=== PATIENT | male | born 1975 | race Caucasian/White ===

== ENCOUNTER 2017-10-21 15:17 | Inpatient (IN) | payer OTHER ==
[2017-10-21] MEDS: LORazepam 2 MG TAB PO ×2 (16:02→17:00)
[2017-10-21 16:05] LABS: HEMATOCRIT 46.1 % (42.0-52.0); HEMOGLOBIN 15.8 g/dl (13.5-17.5); MEAN CORPUSCULAR HEMOGLOBIN 30.5 pg (27.0-33.0); MEAN CORPUSCULAR HGB CONC 34.3 g/dl (32.0-36.5); PLATELET COUNT, AUTOMATED 298 10^3/uL (150-450); RED BLOOD COUNT 5.18 10^6/uL (4.30-6.10); RED CELL DISTRIBUTION WIDTH 12.2 % (11.5-14.5); WHITE BLOOD COUNT 10.5 10^3/uL (4.0-10.0)
[2017-10-21 16:39] LABS: ALBUMIN 4.2 GM/DL (3.2-5.2); ALBUMIN/GLOBULIN RATIO 1.14 (1.00-1.93); ALKALINE PHOSPHATASE 96 U/L (45-117); ALT/SGPT 37 U/L (12-78); ANION GAP 4 MEQ/L (8-16); AST/SGOT 14 U/L (7-37); BILIRUBIN,DIRECT 0.1 MG/DL (0.0-0.2); BILIRUBIN,TOTAL 0.7 MG/DL (0.2-1.0); BLOOD UREA NITROGEN 18 MG/DL (7-18); CALCIUM LEVEL 9.9 MG/DL (8.5-10.1); CARBON DIOXIDE LEVEL 30 MEQ/L (21-32); CHLORIDE LEVEL 105 MEQ/L (98-107); CREATININE FOR GFR 1.15 MG/DL (0.70-1.30); ETHYL ALCOHOL (ETHANOL) 0.004 % (0.000-0.010); GLOMERULAR FILTRATION RATE > 60.0 (>60); GLUCOSE, FASTING 90 MG/DL (70-100); POTASSIUM SERUM 4.2 MEQ/L (3.5-5.1); SALICYLATE LEVEL < 1.7 MG/DL (5.0-30.0); SODIUM LEVEL 139 MEQ/L (136-145); TOTAL PROTEIN 7.9 GM/DL (6.4-8.2)
[2017-10-21 16:40] LABS: AMPHETAMINES LEVEL URINE NEGATIVE (NEGATIVE); BARBITURATES URINE NEGATIVE (NEGATIVE); BENZODIAZEPINES URINE NEGATIVE (NEGATIVE); CANNABINOIDS URINE NEGATIVE (NEGATIVE); COCAINE METABOLITE URINE NEGATIVE (NEGATIVE); METHADONE URINE NEGATIVE (NEGATIVE); OPIATES URINE NEGATIVE (NEGATIVE); PHENCYCLIDINE URINE NEGATIVE (NEGATIVE)
[2017-10-21 16:43] LABS: ACETAMINOPHEN LEVEL < 2.0 UG/ML (10.0-30.0)
[2017-10-21] MEDS ORDERED: MOM 30ML SUSPENSION UDC PO (17:00)
[2017-10-21] MEDS ORDERED: MAALOX 30 ML SUSP *UDC PO (17:00)
[2017-10-21] MEDS: traZODone 50 MG TAB PO (19:45)
[2017-10-21] MEDS: ACETAMINOPHEN TAB 650MG DOSE (2X325MG) PO (19:45)
[2017-10-21] MEDS: METHADONE 10 MG TAB (S0109) PO (19:45)
[2017-10-22] MEDS: NICOTINE 21MG/24HR 1 EA TRANSDERMAL TD (09:00)
[2017-10-22] MEDS: METHADONE 10 MG TAB (S0109) PO (09:19)
[2017-10-22] MEDS: VENLAFAXINE **XR** 37.5 MG CAPSULE PO (13:26)
[2017-10-22] MEDS: cloNIDine 0.1 MG TAB PO ×2 (13:27→17:17)
[2017-10-22] MEDS: ACETAMINOPHEN TAB 650MG DOSE (2X325MG) PO (20:45)
[2017-10-22] MEDS: traZODone 50 MG TAB PO (20:45)
[2017-10-23] MEDS: VENLAFAXINE **XR** 37.5 MG CAPSULE PO (08:07)
[2017-10-23] MEDS: METHADONE 10 MG TAB (S0109) PO (08:07)
[2017-10-23] MEDS: NICOTINE 21MG/24HR 1 EA TRANSDERMAL TD (08:08)
[2017-10-23 08:49] LABS: HEMATOCRIT 45.4 % (42.0-52.0); HEMOGLOBIN 15.5 g/dl (13.5-17.5); MEAN CORPUSCULAR HEMOGLOBIN 30.6 pg (27.0-33.0); MEAN CORPUSCULAR HGB CONC 34.1 g/dl (32.0-36.5); MEAN CORPUSCULAR VOLUME 89.5 fl (80.0-96.0); PLATELET COUNT, AUTOMATED 262 10^3/uL (150-450); RED BLOOD COUNT 5.07 10^6/uL (4.30-6.10); WHITE BLOOD COUNT 7.8 10^3/uL (4.0-10.0)
[2017-10-23] MEDS: LORazepam 0.5 MG TAB PO (15:01)
[2017-10-23] MEDS: traZODone 50 MG TAB PO (20:33)
[2017-10-23] MEDS: cloNIDine 0.1 MG TAB PO (20:34)
[2017-10-23] MEDS: ACETAMINOPHEN TAB 650MG DOSE (2X325MG) PO (20:35)
[2017-10-24] MEDS: NICOTINE 21MG/24HR 1 EA TRANSDERMAL TD (08:10)
[2017-10-24] MEDS: cloNIDine 0.1 MG TAB PO ×2 (08:13→20:51)
[2017-10-24] MEDS: VENLAFAXINE **XR** 75MG CAPSULE PO (08:14)
[2017-10-24] MEDS: METHADONE 10 MG TAB (S0109) PO (08:14)
[2017-10-24 09:38] LABS: HEPATITIS B SURFACE ANTIGEN NEGATIVE (NEGATIVE)
[2017-10-24 09:53] LABS: HEPATITIS C VIRUS ABY INDEX 0.1 INDEX (<0.8)
[2017-10-24 09:53] LABS: HEPATITIS B CORE ANTIBODY IGM NEGATIVE (NEGATIVE)
[2017-10-24 09:54] LABS: HIV 1&2 SCREEN CENTAUR NEGATIVE (NEGATIVE)
[2017-10-24 09:55] LABS: HEPATITIS A ANTIBODY IGM NEGATIVE (NEGATIVE)
[2017-10-24] MEDS ORDERED: QUEtiapine FUMARATE 25 MG TAB PO (11:15)
[2017-10-24] MEDS: QUEtiapine FUMARATE 50 MG TAB PO (11:23)
[2017-10-24] MEDS: LORazepam 0.5 MG TAB PO (19:04)
[2017-10-24] MEDS: QUEtiapine FUMARATE 100 MG TAB PO (20:51)
[2017-10-25] MEDS: VENLAFAXINE **XR** 75MG CAPSULE PO (08:42)
[2017-10-25] MEDS: METHADONE 10 MG TAB (S0109) PO (08:43)
[2017-10-25] MEDS: NICOTINE 21MG/24HR 1 EA TRANSDERMAL TD (08:43)
[2017-10-25] MEDS: ACETAMINOPHEN TAB 650MG DOSE (2X325MG) PO (15:42)
[2017-10-25] MEDS: QUEtiapine FUMARATE 25 MG TAB PO (18:13)
[2017-10-25] MEDS: QUEtiapine FUMARATE 100 MG TAB PO (20:36)
[2017-10-25] MEDS: LORazepam 0.5 MG TAB PO (20:36)
[2017-10-25] MEDS: cloNIDine 0.1 MG TAB PO (20:37)
[2017-10-26] MEDS: VENLAFAXINE **XR** 75MG CAPSULE PO (08:29)
[2017-10-26] MEDS: METHADONE 10 MG TAB (S0109) PO (08:29)
[2017-10-26] MEDS: NICOTINE 21MG/24HR 1 EA TRANSDERMAL TD (08:29)
[2017-10-26] MEDS: QUEtiapine FUMARATE 25 MG TAB PO (12:29)
[2017-10-26] MEDS: LORazepam 0.5 MG TAB PO (19:34)
[2017-10-26] MEDS: QUEtiapine FUMARATE 100 MG TAB PO (20:59)
[2017-10-26] MEDS: cloNIDine 0.1 MG TAB PO (21:00)
[2017-10-27] MEDS: NICOTINE 21MG/24HR 1 EA TRANSDERMAL TD (08:13)
[2017-10-27] MEDS: METHADONE 10 MG TAB (S0109) PO (08:17)
[2017-10-27] MEDS: VENLAFAXINE **XR** 75MG CAPSULE PO (08:17)
[2017-10-27] MEDS: QUEtiapine FUMARATE 25 MG TAB PO ×2 (12:39→17:28)
[2017-10-27] MEDS: QUEtiapine FUMARATE 100 MG TAB PO (21:43)
[2017-10-28] MEDS: METHADONE 5 MG TAB (S0109) PO (08:06)
[2017-10-28] MEDS: VENLAFAXINE **XR** 75MG CAPSULE PO (08:06)
[2017-10-28] MEDS: QUEtiapine FUMARATE 25 MG TAB PO ×2 (08:06→11:58)
[2017-10-28] MEDS: NICOTINE 21MG/24HR 1 EA TRANSDERMAL TD (08:07)
[2017-10-28] MEDS: cloNIDine 0.2 MG TAB PO (13:48)
[2017-10-28] MEDS: QUEtiapine FUMARATE 100 MG TAB PO (20:48)
[2017-10-29] MEDS: NICOTINE 21MG/24HR 1 EA TRANSDERMAL TD (08:37)
[2017-10-29] MEDS: METHADONE 5 MG TAB (S0109) PO (08:38)
[2017-10-29] MEDS: VENLAFAXINE **XR** 75MG CAPSULE PO (08:39)
[2017-10-29] MEDS: QUEtiapine FUMARATE 25 MG TAB PO ×2 (08:39→11:57)
== END 2017-10-29 12:00 | disposition home or self-care (01) | DRG 751 ==
LOC: M ED 15:17 → M ED INP 16:47 → M PSY 18:15
DX: F33.9 Major depressive disorder, recurrent, unspecified (principal); R45.851 Suicidal ideations; F14.90 Cocaine use, unspecified, uncomplicated; F11.90 Opioid use, unspecified, uncomplicated; F43.10 Post-traumatic stress disorder, unspecified; F17.200 Nicotine dependence, unspecified, uncomplicated; D72.829 Elevated white blood cell count, unspecified

== ENCOUNTER 2017-11-07 23:45 | Inpatient (IN) | payer OTHER ==
[2017-11-08 02:32] LABS: HEMATOCRIT 44.4 % (42.0-52.0); HEMOGLOBIN 14.7 g/dl (13.5-17.5); MEAN CORPUSCULAR HEMOGLOBIN 30.7 pg (27.0-33.0); MEAN CORPUSCULAR HGB CONC 33.1 g/dl (32.0-36.5); MEAN CORPUSCULAR VOLUME 92.7 fl (80.0-96.0); PLATELET COUNT, AUTOMATED 305 10^3/uL (150-450); RED BLOOD COUNT 4.79 10^6/uL (4.30-6.10); RED CELL DISTRIBUTION WIDTH 12.6 % (11.5-14.5); WHITE BLOOD COUNT 18.8 10^3/uL (4.0-10.0)
[2017-11-08 02:47] LABS: AMPHETAMINES LEVEL URINE NEGATIVE (NEGATIVE); BARBITURATES URINE NEGATIVE (NEGATIVE); BENZODIAZEPINES URINE NEGATIVE (NEGATIVE); CANNABINOIDS URINE POSITIVE (NEGATIVE); COCAINE METABOLITE URINE POSITIVE (NEGATIVE); METHADONE URINE NEGATIVE (NEGATIVE); OPIATES URINE POSITIVE (NEGATIVE); PHENCYCLIDINE URINE NEGATIVE (NEGATIVE)
[2017-11-08 02:48] LABS: ALBUMIN/GLOBULIN RATIO 1.39 (1.00-1.93); ALKALINE PHOSPHATASE 128 U/L (45-117); ALT/SGPT 134 U/L (12-78); ANION GAP 10 MEQ/L (8-16); AST/SGOT 23 U/L (7-37); BILIRUBIN,DIRECT 0.2 MG/DL (0.0-0.2); BLOOD UREA NITROGEN 13 MG/DL (7-18); CALCIUM LEVEL 9.5 MG/DL (8.5-10.1); CARBON DIOXIDE LEVEL 28 MEQ/L (21-32); CHLORIDE LEVEL 105 MEQ/L (98-107); CREATININE FOR GFR 1.14 MG/DL (0.70-1.30); ETHYL ALCOHOL (ETHANOL) < 0.003 % (0.000-0.010); GLOMERULAR FILTRATION RATE > 60.0 (>60); GLUCOSE, FASTING 98 MG/DL (70-100); SALICYLATE LEVEL < 1.7 MG/DL (5.0-30.0); SODIUM LEVEL 143 MEQ/L (136-145); TOTAL PROTEIN 8.6 GM/DL (6.4-8.2)
[2017-11-08 02:50] LABS: ACETAMINOPHEN LEVEL < 2.0 UG/ML (10.0-30.0)
[2017-11-08] MEDS ORDERED: MOM 30ML SUSPENSION UDC PO (03:15)
[2017-11-08] MEDS: MAALOX 30 ML SUSP *UDC PO (17:59)
[2017-11-08] MEDS: hydrOXYzine 50 MG TAB PO (19:25)
[2017-11-08] MEDS: ACETAMINOPHEN TAB 650MG DOSE (2X325MG) PO (19:25)
[2017-11-08] MEDS: cloNIDine 0.1 MG TAB PO (20:06)
[2017-11-08] MEDS: ONDANSETRON 4 MG ORAL DISINTEGRATING TAB (Q0162 PER 1MG) PO (20:07)
[2017-11-08] MEDS: traZODone 50 MG TAB PO (20:07)
[2017-11-09 07:32] LABS: BASO # 0.1 10^3/uL (0.0-0.2); BASO % 0.6 % (0.0-1.0); EOS # 0.4 10^3/uL (0.0-0.50); EOS % 4.6 % (0.0-3.0); HEMATOCRIT 44.3 % (42.0-52.0); HEMOGLOBIN 14.9 g/dl (13.5-17.5); IMMATURE GRANULOCYTE % 0.5 % (0-3.0); LYMPH # 3.2 10^3/uL (1.5-4.5); LYMPH % 37.5 % (24.0-44.0); MEAN CORPUSCULAR HEMOGLOBIN 30.7 pg (27.0-33.0); MEAN CORPUSCULAR HGB CONC 33.6 g/dl (32.0-36.5); MEAN CORPUSCULAR VOLUME 91.2 fl (80.0-96.0); MONO # 0.9 10^3/uL (0.0-0.8); NEUTROPHILS % 46.8 % (36.0-66.0); PLATELET COUNT, AUTOMATED 331 10^3/uL (150-450); RED BLOOD COUNT 4.86 10^6/uL (4.30-6.10); RED CELL DISTRIBUTION WIDTH 12.7 % (11.5-14.5); WHITE BLOOD COUNT 8.5 10^3/uL (4.0-10.0)
[2017-11-09 08:05] LABS: ALBUMIN 4.1 GM/DL (3.2-5.2); ALBUMIN/GLOBULIN RATIO 1.32 (1.00-1.93); ALKALINE PHOSPHATASE 111 U/L (45-117); ALT/SGPT 83 U/L (12-78); ANION GAP 8 MEQ/L (8-16); AST/SGOT 12 U/L (7-37); BILIRUBIN,TOTAL 0.9 MG/DL (0.2-1.0); BLOOD UREA NITROGEN 15 MG/DL (7-18); CALCIUM LEVEL 9.7 MG/DL (8.5-10.1); CARBON DIOXIDE LEVEL 30 MEQ/L (21-32); CHLORIDE LEVEL 106 MEQ/L (98-107); CREATININE FOR GFR 1.11 MG/DL (0.70-1.30); FREE THYROXINE INDEX 4.3 % (1.4-3.8); GLOMERULAR FILTRATION RATE > 60.0 (>60); GLUCOSE, FASTING 81 MG/DL (70-100); POTASSIUM SERUM 4.1 MEQ/L (3.5-5.1); SODIUM LEVEL 144 MEQ/L (136-145); T UPTAKE 34 % (33-40); THYROXINE (T4) 12.6 UG/DL (4.5-12.0); TOTAL PROTEIN 7.2 GM/DL (6.4-8.2)
[2017-11-09] MEDS: INFLUENZA QUADRIVALENT PF VACCINE 0.5ML SYRINGE (90686) IM (09:00)
[2017-11-09] MEDS: hydrOXYzine 50 MG TAB PO ×2 (12:17→20:20)
[2017-11-09] MEDS: PILL CRUSHER/CUTTER 1 EACH XX (12:17)
[2017-11-09] MEDS: ONDANSETRON 4 MG ORAL DISINTEGRATING TAB (Q0162 PER 1MG) PO (12:18)
[2017-11-09] MEDS: cloNIDine 0.1 MG TAB PO ×2 (12:18→17:38)
[2017-11-09] MEDS: ACETAMINOPHEN TAB 650MG DOSE (2X325MG) PO (17:40)
[2017-11-09] MEDS: traZODone 50 MG TAB PO (20:20)
[2017-11-09] MEDS: QUEtiapine FUMARATE 50 MG TAB PO (21:47)
[2017-11-10] MEDS: QUEtiapine FUMARATE 50 MG TAB PO ×2 (11:59→20:26)
[2017-11-10] MEDS: VENLAFAXINE **XR** 75MG CAPSULE PO (12:00)
[2017-11-10] MEDS: hydrOXYzine 50 MG TAB PO (18:00)
[2017-11-11] MEDS: VENLAFAXINE **XR** 75MG CAPSULE PO ×2 (08:00→09:17)
[2017-11-11] MEDS: QUEtiapine FUMARATE 50 MG TAB PO (08:00)
[2017-11-11] MEDS: cloNIDine 0.1 MG TAB PO (16:53)
[2017-11-11] MEDS: hydrOXYzine 50 MG TAB PO (16:53)
[2017-11-11] MEDS: QUEtiapine FUMARATE 100 MG TAB PO (21:19)
[2017-11-11] MEDS: traZODone 50 MG TAB PO (21:19)
[2017-11-12] MEDS: QUEtiapine FUMARATE 50 MG TAB PO (08:15)
[2017-11-12] MEDS: VENLAFAXINE **XR** 75MG CAPSULE PO (08:15)
[2017-11-12] MEDS: hydrOXYzine 50 MG TAB PO (20:06)
[2017-11-12] MEDS: GABAPENTIN 400 MG CAP PO (20:06)
[2017-11-12] MEDS: QUEtiapine FUMARATE 200 MG TAB PO (21:53)
[2017-11-13] MEDS: VENLAFAXINE **XR** 75MG CAPSULE PO (08:22)
[2017-11-13] MEDS: QUEtiapine FUMARATE 50 MG TAB PO ×2 (08:22→20:15)
[2017-11-13] MEDS: hydrOXYzine 50 MG TAB PO (12:00)
[2017-11-13] MEDS: cloNIDine 0.1 MG TAB PO (16:55)
[2017-11-13] MEDS: GABAPENTIN 400 MG CAP PO (20:14)
[2017-11-13] MEDS: MIRTAZAPINE 15 MG TAB PO (20:16)
[2017-11-14] MEDS: VENLAFAXINE **XR** 75MG CAPSULE PO (08:28)
[2017-11-14] MEDS: QUEtiapine FUMARATE 50 MG TAB PO (08:28)
[2017-11-14] MEDS: hydrOXYzine 50 MG TAB PO (13:34)
[2017-11-14] MEDS: MIRTAZAPINE 15 MG TAB PO (20:31)
[2017-11-14] MEDS: GABAPENTIN 300 MG CAP PO (20:31)
[2017-11-14] MEDS: ACETAMINOPHEN TAB 650MG DOSE (2X325MG) PO (20:32)
[2017-11-15] MEDS: VENLAFAXINE **XR** 75MG CAPSULE PO (08:07)
[2017-11-15] MEDS: QUEtiapine FUMARATE 200 MG TAB PO (13:08)
[2017-11-15] MEDS: MIRTAZAPINE 15 MG TAB PO (20:06)
[2017-11-15] MEDS: GABAPENTIN 300 MG CAP PO (20:06)
[2017-11-15] MEDS: ACETAMINOPHEN TAB 650MG DOSE (2X325MG) PO (20:08)
[2017-11-16] MEDS: VENLAFAXINE **XR** 75MG CAPSULE PO (08:21)
[2017-11-16] MEDS: QUEtiapine FUMARATE 200 MG TAB PO (14:02)
[2017-11-16] MEDS: ACETAMINOPHEN TAB 650MG DOSE (2X325MG) PO (20:42)
[2017-11-16] MEDS: GABAPENTIN 300 MG CAP PO (20:42)
[2017-11-16] MEDS: MIRTAZAPINE 15 MG TAB PO (20:42)
[2017-11-17] MEDS: VENLAFAXINE **XR** 75MG CAPSULE PO (08:19)
[2017-11-17] MEDS: hydrOXYzine 50 MG TAB PO (11:57)
== END 2017-11-17 13:50 | disposition home or self-care (01) | DRG 751 ==
LOC: M ED 23:45 → M ED INP 11-08 03:05 → M PSY 11-08 03:55
DX: F33.1 Major depressive disorder, recurrent, moderate (principal); D72.829 Elevated white blood cell count, unspecified; F14.90 Cocaine use, unspecified, uncomplicated; F11.90 Opioid use, unspecified, uncomplicated; F43.10 Post-traumatic stress disorder, unspecified; Z79.899 Other long term (current) drug therapy; F17.200 Nicotine dependence, unspecified, uncomplicated

== ENCOUNTER → 2018-01-09 | Outpatient (REF) | payer OTHER, MEDICAID ==
[2018-01-09 17:23] LABS: BASO % 0.5 % (0.0-1.0); EOS # 0.5 10^3/uL (0.0-0.50); EOS % 5.5 % (0.0-3.0); HEMATOCRIT 47.3 % (42.0-52.0); HEMOGLOBIN 16.3 g/dl (13.5-17.5); IMMATURE GRANULOCYTE % 0.2 % (0-3.0); LYMPH # 2.2 10^3/uL (1.5-4.5); MEAN CORPUSCULAR HEMOGLOBIN 30.4 pg (27.0-33.0); MEAN CORPUSCULAR HGB CONC 34.5 g/dl (32.0-36.5); MEAN CORPUSCULAR VOLUME 88.2 fl (80.0-96.0); MONO # 0.7 10^3/uL (0.0-0.8); NEUTROPHILS # 5.1 10^3/uL (1.8-7.7); NEUTROPHILS % 59.8 % (36.0-66.0); PLATELET COUNT, AUTOMATED 267 10^3/uL (150-450); RED BLOOD COUNT 5.36 10^6/uL (4.30-6.10); RED CELL DISTRIBUTION WIDTH 11.9 % (11.5-14.5); WHITE BLOOD COUNT 8.5 10^3/uL (4.0-10.0)
[2018-01-09 17:24] LABS: ALBUMIN 4.1 GM/DL (3.2-5.2); ALBUMIN/GLOBULIN RATIO 1.24 (1.00-1.93); ALKALINE PHOSPHATASE 110 U/L (45-117); ALT/SGPT 130 U/L (12-78); ANION GAP 6 MEQ/L (8-16); AST/SGOT 85 U/L (7-37); BILIRUBIN,TOTAL 0.6 MG/DL (0.2-1.0); BLOOD UREA NITROGEN 16 MG/DL (7-18); CALCIUM LEVEL 9.3 MG/DL (8.5-10.1); CARBON DIOXIDE LEVEL 28 MEQ/L (21-32); CHLORIDE LEVEL 106 MEQ/L (98-107); CREATININE FOR GFR 1.14 MG/DL (0.70-1.30); FREE THYROXINE INDEX 3.2 % (1.4-3.8); GLOMERULAR FILTRATION RATE > 60.0 (>60); GLUCOSE, FASTING 109 MG/DL (70-100); SODIUM LEVEL 140 MEQ/L (136-145); T UPTAKE 32 % (33-40); THYROID STIMULATING HORMONE 0.736 uIU/ML (0.358-3.740); TOTAL 25(OH) VITAMIN D 18.5 NG/ML (30.0-100.0); TOTAL PROTEIN 7.4 GM/DL (6.4-8.2)
[2018-01-09 17:50] LABS: ESTIMATED AVERAGE GLUCOSE 105 MG/DL (60-110); HEMOGLOBIN A1c 5.3 %
[2018-01-11 08:46] LABS: HEPATITIS B CORE ANTIBODY IGG Negative (Negative)
[2018-01-12 10:42] LABS: HEPATITIS B SURFACE ANTIGEN NEGATIVE (NEGATIVE)
[2018-01-12 11:09] LABS: HEPATITIS C VIRUS ABY INDEX 0.1 INDEX (<0.8)
== END ==
LOC: M LAB REF 16:42
DX: F41.8 Other specified anxiety disorders (principal)

== ENCOUNTER → 2018-01-09 | Outpatient (REF) | payer OTHER, MEDICAID ==
[2018-01-19 09:19] LABS: SUMMARY SEE SEPARATE REPORT
== END ==
LOC: M LAB REF 16:39
DX: F41.8 Other specified anxiety disorders (principal)

== ENCOUNTER 2018-04-15 05:40 | Emergency (ER) | payer MEDICAID, OTHER ==
[~2018-04-15] VITALS: Ht 172.7 cm; Wt 77.3 kg
[2018-04-15 05:40] VITALS: BP 124/79
[~2018-04-15 05:40] MED LIST: ARIP5TA PO; GABA-843 PO; HYDRO50TAB PO; MIRT15TA3 PO; PATIENT COMMENTS; QUET1TAB7 PO; QUET1TAB8 PO; QUET1TAB9 PO; QUET5TAB PO; TRAZO50TA PO; VENL75CA47 PO
[2018-04-15] MEDS ORDERED: BACT800T5 PO (06:49)
[2018-04-15] MEDS ORDERED: CODE30TA3 PO (06:50)
== END 2018-04-15 07:12 | disposition home or self-care (01) ==
LOC: M ED 05:40 → EEVIPCON 05:40 → M ED 07:12
DX: L02.211 Cutaneous abscess of abdominal wall (principal); F41.9 Anxiety disorder, unspecified; F32.9 Major depressive disorder, single episode, unspecified; Z79.2 Long term (current) use of antibiotics

== ENCOUNTER → 2018-12-18 | Outpatient (CLI) | payer SELFPAY ==
[~2018-12-18] MED LIST changes: +ACET300T47 PO; +ARIP1TAB6 PO; -ARIP5TA PO; +BACT800T5 PO; +HYDR1TAB33 PO; -HYDRO50TAB PO; -QUET1TAB9 PO; +QUET200T2 PO; +TRAZ1TAB10 PO; -TRAZO50TA PO
== END ==
LOC: M OUTALCOH 13:13
PROVIDERS: ATTEND Psychiatry & Neurology Psychiatry
DX: Z53.9 Procedure and treatment not carried out, unspecified reason (principal)

== ENCOUNTER 2018-12-28 14:53 | Outpatient (RCR) | payer MEDICAID | END 2018-12-31 | LOC: M OUTALCOH 14:53 | PROVIDERS: ATTEND Psychiatry & Neurology Psychiatry | DX: F12.10 Cannabis abuse, uncomplicated (principal) ==

== ENCOUNTER 2019-01-26 16:00 | Outpatient (RCR) | payer MEDICAID | END 2019-01-30 | LOC: M OUTALCOH 16:00 | PROVIDERS: ATTEND Psychiatry & Neurology Psychiatry | DX: F12.10 Cannabis abuse, uncomplicated (principal) ==

== ENCOUNTER 2019-02-23 16:00 | Outpatient (RCR) | payer MEDICAID, OTHER | END 2019-03-02 | LOC: M OUTALCOH 16:00 | PROVIDERS: ATTEND Psychiatry & Neurology Psychiatry | DX: F12.10 Cannabis abuse, uncomplicated (principal) ==

== ENCOUNTER 2019-03-31 15:00 | Outpatient (RCR) | payer OTHER | END 2019-04-02 | LOC: M OUTALCOH 15:00 | PROVIDERS: ATTEND Psychiatry & Neurology Psychiatry | DX: F12.10 Cannabis abuse, uncomplicated (principal) ==

== ENCOUNTER 2019-04-28 09:26 | Outpatient (RCR) | payer OTHER ==
[~2019-04-28 09:26] MED LIST changes: +QUET100T2 PO; -QUET1TAB8 PO
== END 2019-05-01 ==
LOC: M OUTALCOH 09:26
PROVIDERS: ATTEND Psychiatry & Neurology Addiction Medicine
DX: F12.20 Cannabis dependence, uncomplicated (principal); F15.20 Other stimulant dependence, uncomplicated

== ENCOUNTER 2019-05-31 14:21 | Outpatient (RCR) | payer MEDICAID | END 2019-06-01 | LOC: M OUTALCOH 14:21 | PROVIDERS: ATTEND Psychiatry & Neurology Addiction Medicine | DX: F12.20 Cannabis dependence, uncomplicated (principal); F15.20 Other stimulant dependence, uncomplicated ==

== ENCOUNTER 2019-06-28 15:00 | Outpatient (RCR) | payer MEDICAID | END 2019-07-01 | LOC: M OUTALCOH 15:00 | PROVIDERS: ATTEND Psychiatry & Neurology Addiction Medicine | DX: F12.20 Cannabis dependence, uncomplicated (principal); F15.20 Other stimulant dependence, uncomplicated ==

== ENCOUNTER 2019-07-30 09:30 | Outpatient (RCR) | payer MEDICAID | END 2019-08-01 | LOC: M OUTALCOH 09:30 | PROVIDERS: ATTEND Psychiatry & Neurology Addiction Medicine | DX: F12.20 Cannabis dependence, uncomplicated (principal); F15.20 Other stimulant dependence, uncomplicated ==

== ENCOUNTER → 2019-08-31 | Outpatient (RCR) | payer MEDICAID | LOC: M OUTALCOH 08-03 11:00 | PROVIDERS: ATTEND Psychiatry & Neurology Addiction Medicine | DX: F12.20 Cannabis dependence, uncomplicated (principal); F15.20 Other stimulant dependence, uncomplicated ==

== ENCOUNTER 2019-09-04 11:05 | Emergency (ER) | payer MEDICAID ==
[~2019-09-04] VITALS: Ht 175.3 cm; Wt 84.4 kg
[2019-09-04 11:06] VITALS: BP 122/79
[2019-09-04] MEDS ORDERED: CEPH500C PO (11:14)
[2019-09-04] MEDS ORDERED: PRED20TA PO (11:52)
[2019-09-04] MEDS ORDERED: BENA25CA4 PO (11:52)
[2019-09-04] MEDS ORDERED: FAMOTIDINE 20 MG TAB PO ONE (12:00)
[2019-09-04] MEDS ORDERED: diphenhydrAMINE 50MG CAP PO ONE (12:00)
[2019-09-04] MEDS ORDERED: predniSONE 20 MG TAB PO ONE (12:00)
== END 2019-09-04 12:04 | disposition home or self-care (01) ==
LOC: M ED 11:05
DX: L29.9 Pruritus, unspecified (principal)

== ENCOUNTER 2019-09-30 09:00 | Outpatient (RCR) | payer MEDICAID, OTHER ==
[~2019-09-30 09:00] MED LIST changes: +BENA25CA4 PO; +CEPH500C PO; +PRED20TA PO
== END 2019-10-01 ==
LOC: M OUTALCOH 09:00
PROVIDERS: ATTEND Psychiatry & Neurology Addiction Medicine
DX: F12.20 Cannabis dependence, uncomplicated (principal); F15.20 Other stimulant dependence, uncomplicated

== ENCOUNTER 2019-10-07 09:00 | Outpatient (RCR) | payer MEDICAID, OTHER | END 2019-11-01 | LOC: M OUTALCOH 09:00 | PROVIDERS: ATTEND Psychiatry & Neurology Addiction Medicine | DX: F12.20 Cannabis dependence, uncomplicated (principal); F15.20 Other stimulant dependence, uncomplicated ==

== ENCOUNTER → 2019-12-15 | Outpatient (REF) | payer OTHER, MEDICAID ==
[2019-12-15 17:38] LABS: ALBUMIN 4.4 GM/DL (3.2-5.2); ALT/SGPT 87 U/L (12-78); BILIRUBIN,TOTAL 1.5 MG/DL (0.2-1.0); BLOOD UREA NITROGEN 15 MG/DL (7-18); CALCIUM LEVEL 9.6 MG/DL (8.5-10.1); CARBON DIOXIDE LEVEL 28 MEQ/L (21-32); CHLORIDE LEVEL 105 MEQ/L (98-107); CHOLESTEROL LEVEL 289 MG/DL (<200); CHOLESTEROL RISK RATIO 8.257 (<5); CREATININE FOR GFR 1.11 MG/DL (0.70-1.30); GLOMERULAR FILTRATION RATE > 60.0 (>60); GLUCOSE, FASTING 82 MG/DL (70-100); HDL CHOLESTEROL 35 MG/DL (>40); LDL CHOLESTEROL 217 MG/DL (<100); NON-HDL-C 254 MG/DL; POTASSIUM SERUM 4.4 MEQ/L (3.5-5.1); SODIUM LEVEL 138 MEQ/L (136-145); TOTAL PROTEIN 7.7 GM/DL (6.4-8.2); TRIGLYCERIDES LEVEL 185 MG/DL (<150)
== END ==
LOC: M LAB REF 16:27
PROVIDERS: ATTEND Physician Assistant
DX: F41.8 Other specified anxiety disorders (principal); E66.3 Overweight

== ENCOUNTER → 2019-12-30 | Outpatient (CLI) | payer OTHER ==
--- NOTE | 2020-01-01 14:01 | REP ---
INDICATION: [facility]MA LIPO ANNA OF SKIN, SUBCU OF HEAD, FACE COMPARISON: None. TECHNIQUE: Sousa scale and color evaluation of suspected neck mass using linear high-frequency transducer. FINDINGS: Directed ultrasound examination along the left anterior neck demonstrates 5.0 x 1.4 x 5.9 cm hyperechoic well-circumscribed avascular lesion most compatible with benign lipoma. IMPRESSION: Finding likely represents benign lipoma. <Electronically signed by Chemo Ross > 01/01/20 [id number]
== END ==
LOC: M RAD 10:43
PROVIDERS: ATTEND Surgery
DX: D17.39 Benign lipomatous neoplasm of skin and subcutaneous tissue of other sites (principal)

== ENCOUNTER → 2020-01-20 | Outpatient (REF) | payer OTHER | LOC: M LAB REF 16:33 | PROVIDERS: ATTEND Surgery | DX: D17.0 Benign lipomatous neoplasm of skin and subcutaneous tissue of head, face and neck (principal) ==

== ENCOUNTER → 2020-10-12 | Outpatient (CLI) | payer OTHER ==
[~2020-10-12] MED LIST changes: +GABA-282 PO; -GABA-843 PO; +QUET1TAB17 PO; -QUET1TAB7 PO; +QUET50TA4 PO; -QUET5TAB PO
== END ==
LOC: M OUTALCOH 08:03
PROVIDERS: ATTEND Psychiatry & Neurology Psychiatry
DX: Z13.39 Encounter for screening examination for other mental health and behavioral disorders (principal); F15.20 Other stimulant dependence, uncomplicated

== ENCOUNTER 2020-10-30 08:45 | Outpatient (RCR) | payer OTHER | END 2020-10-31 | LOC: M OUTALCOH 08:45 | PROVIDERS: ATTEND Psychiatry & Neurology Psychiatry | DX: F15.20 Other stimulant dependence, uncomplicated (principal) ==

== ENCOUNTER 2020-11-08 08:45 | Outpatient (RCR) | payer OTHER | END 2020-11-30 | LOC: M OUTALCOH 08:45 | PROVIDERS: ATTEND Psychiatry & Neurology Psychiatry | DX: F15.20 Other stimulant dependence, uncomplicated (principal) ==

== ENCOUNTER → 2021-05-02 | Outpatient (CLI) | payer OTHER | LOC: M RAD 12:37 | PROVIDERS: ATTEND Nurse Practitioner Family | DX: E07.9 Disorder of thyroid, unspecified (principal); D17.0 Benign lipomatous neoplasm of skin and subcutaneous tissue of head, face and neck ==

== ENCOUNTER → 2021-05-11 | Outpatient (CLI) | payer OTHER | LOC: M RAD 09:50 | PROVIDERS: ATTEND Otolaryngology | DX: R22.1 Localized swelling, mass and lump, neck (principal); M50.322 Other cervical disc degeneration at C5-C6 level; M43.02 Spondylolysis, cervical region ==

== ENCOUNTER → 2021-05-28 | Outpatient (CLI) | payer OTHER ==
[~2021-05-28] MED LIST changes: +LIDOCAINE 1% MDV 20ML VIAL As Ordered ONE
[2021-05-28 14:00] VITALS: BP 132/84
== END ==
LOC: M IRPRO 12:59
PROVIDERS: ATTEND Otolaryngology
DX: E04.9 Nontoxic goiter, unspecified (principal)

== ENCOUNTER → 2021-07-16 | Outpatient (CLI) | payer OTHER ==
[~2021-07-16] MED LIST changes: +ATOR40TA75 PO; +CLON-412 PO; +ERGO500029 PO; -LIDOCAINE 1% MDV 20ML VIAL As Ordered ONE; +SERT50TA29 PO; +ZOLO25TA PO
== END ==
LOC: M LABSMTC 11:26
PROVIDERS: ATTEND Anesthesiology
DX: Z01.818 Encounter for other preprocedural examination (principal); Z11.52 Encounter for screening for COVID-19

== ENCOUNTER 2021-07-17 07:14 | Day surgery (SDC) | payer OTHER ==
[2021-07-17] VITALS (7 sets, daily range): BP systolic 111–140; BP diastolic 65–80
[~2021-07-17] VITALS: Ht 177.8 cm; Wt 86.2 kg
[~2021-07-17 07:14] MED LIST changes: +LIDOCAINE 1% MDV 20ML VIAL SQ PRN; +LR 1,000 ML IV ONE
[2021-07-17 08:28] LABS: INR 0.99; PARTIAL THROMBOPLASTIN TIME 27.3 SECONDS (25.9-37.0); PROTHROMBIN TIME 13.5 SECONDS (12.7-14.5)
[2021-07-17 08:46] LABS: ALBUMIN 3.7 GM/DL (3.2-5.2); ALT/SGPT 81 U/L (12-78); BILIRUBIN,TOTAL 0.8 MG/DL (0.2-1.0); BLOOD UREA NITROGEN 9 MG/DL (7-18); CALCIUM LEVEL 9.2 MG/DL (8.5-10.1); CARBON DIOXIDE LEVEL 29 MEQ/L (21-32); CHLORIDE LEVEL 108 MEQ/L (98-107); CREATININE FOR GFR 0.98 MG/DL (0.70-1.30); GLOMERULAR FILTRATION RATE > 60.0 (>60); GLUCOSE, FASTING 101 MG/DL (70-100); POTASSIUM SERUM 4.2 MEQ/L (3.5-5.1); SODIUM LEVEL 142 MEQ/L (136-145); TOTAL PROTEIN 6.7 GM/DL (6.4-8.2)
[2021-07-17] MEDS ORDERED: LIDOCAINE W/EPINEPHRINE 1% 20ML VIAL As Ordered ONE (09:15)
[2021-07-17] MEDS ORDERED: dexameTHASONE 4 MG/ML 1ML VIAL (J1100 PER 1MG) As Ordered ONE (10:05)
[2021-07-17] MEDS ORDERED: propofoL 200 MG/20 ML VIAL As Ordered ONE (10:05)
[2021-07-17] MEDS ORDERED: SUCCINYLCHOLINE 100 MG/5 ML SYRINGE (J0330) As Ordered ONE (10:05)
[2021-07-17] MEDS ORDERED: ONDANSETRON 4MG/2ML VIAL As Ordered ONE (10:05)
[2021-07-17] MEDS ORDERED: LIDOCAINE 2% 100MG/5ML SDV (FOR ANES.) As Ordered ONE (10:05)
[2021-07-17] MEDS ORDERED: fentaNYL 100 MCG/2 ML INJECTION As Ordered ONE (10:05)
[2021-07-17] MEDS ORDERED: MIDAZOLAM INJ 2MG/2ML VIAL (J2250 PER 1MG) As Ordered ONE (10:05)
[2021-07-17] MEDS ORDERED: HYDROmorphone HCL 2MG/ML 1ML VIAL As Ordered ONE (10:06)
[2021-07-17] MEDS ORDERED: ONDANSETRON 4MG/2ML VIAL IV PRN ×2 (12:15)
[2021-07-17] MEDS ORDERED: LR 1,000 ML IV SCH (12:15)
[2021-07-17] MEDS ORDERED: MORPHINE 4 MG/ML 1ML VIAL/SYRINGE IV PRN (12:15)
[2021-07-17] MEDS: oxyCODONE 5MG TAB PO PRN ×2 (12:41→13:19)
[2021-07-17] MEDS: fentaNYL 100 MCG/2 ML INJECTION IV PRN ×4 (13:22→13:41)
[2021-07-17] MEDS: ANEXSIA, NORCO 7.5MG/325MG TABLET(HYDROCODONE/APAP) PO PRN ×3 (14:24→22:32)
[2021-07-17] MEDS: LR 1,000 ML IV SCH (14:30)
[2021-07-18] MEDS: LR 1,000 ML IV SCH (00:17)
[2021-07-18 02:30] VITALS: BP 113/66
[2021-07-18] MEDS: ANEXSIA, NORCO 7.5MG/325MG TABLET(HYDROCODONE/APAP) PO PRN (05:45)
[2021-07-18 06:30] VITALS: BP 114/67
== END 2021-07-18 10:26 | disposition home or self-care (01) ==
LOC: M SDC 07:14 → M MSPAV 14:01 → M SDC 07-18 10:26
PROVIDERS: ATTEND Otolaryngology
DX: E04.2 Nontoxic multinodular goiter (principal); B18.2 Chronic viral hepatitis C; Z87.891 Personal history of nicotine dependence; F41.9 Anxiety disorder, unspecified; F32.9 Major depressive disorder, single episode, unspecified; Z79.899 Other long term (current) drug therapy
CPT/HCPCS: 36415; 60240; 80053; 85610; 85730; 88307; 96360; 96361; J0330; J1100; J1170; J2250; J2405; J3010

== ENCOUNTER 2022-06-22 09:46 | Emergency (ER) | payer OTHER ==
[~2022-06-22] VITALS: Ht 177.8 cm; Wt 78.2 kg
[~2022-06-22 09:46] MED LIST changes: -LIDOCAINE 1% MDV 20ML VIAL SQ PRN; -LR 1,000 ML IV ONE
[2022-06-22] MEDS ORDERED: BACITRACIN OINTMENT 30GM TUBE TOP ONE (10:15)
[2022-06-22] MEDS ORDERED: IBUPROFEN 600MG TAB PO ONE (10:15)
[2022-06-22] MEDS ORDERED: BOOSTRIX VACCINE (TETANUS/DIPHTH/ACEL. PERTUSSIS) 0.5ML SYR IM.IMMUN ONE (10:15)
[2022-06-22] MEDS ORDERED: DERMABOND TOPICAL SKIN ADHESIVE TOP ONE (10:20)
[2022-06-22] MEDS ORDERED: LIDOCAINE 1% MDV 20ML VIAL As Ordered ONE (11:52)
[2022-06-22] MEDS ORDERED: LIDOCAINE 1% MDV 20ML VIAL SC ONE (11:55)
[2022-06-22 12:20] VITALS: BP 138/92
== END 2022-06-22 12:25 | disposition home or self-care (01) ==
LOC: M ED 09:46
DX: S61.412A Laceration without foreign body of left hand, initial encounter (principal); S51.022A Laceration with foreign body of left elbow, initial encounter; V00.131A Fall from skateboard, initial encounter; Y92.830 Public park as the place of occurrence of the external cause; Z79.02 Long term (current) use of antithrombotics/antiplatelets; Z79.52 Long term (current) use of systemic steroids; Z79.899 Other long term (current) drug therapy; Z23 Encounter for immunization

== ENCOUNTER 2023-09-11 14:59 | Inpatient (IN) | payer OTHER ==
[~2023-09-11] VITALS: Ht 177.8 cm; Wt 79.3 kg
[2023-09-11 16:37] LABS: BASO % 0.2 % (0.0-1.0); EOS % 0.1 % (0.0-3.0); HEMATOCRIT 37.1 % (42.0-52.0); LYMPH # 1.8 10^3/uL (1.5-5.0); LYMPH % 12.6 % (24.0-44.0); MEAN CORPUSCULAR HEMOGLOBIN 30.6 pg (27.0-33.0); MEAN CORPUSCULAR VOLUME 87.3 fl (80.0-96.0); MONO # 1.1 10^3/uL (0.0-0.8); MONO % 7.8 % (2.0-8.0); NEUTROPHILS # 11.4 10^3/uL (1.5-8.5); NEUTROPHILS % 78.7 % (36.0-66.0); PLATELET COUNT, AUTOMATED 202 10^3/uL (150-450); RED BLOOD COUNT 4.25 10^6/uL (4.30-6.10); WHITE BLOOD COUNT 14.4 10^3/uL (4.0-10.0)
[2023-09-11] MEDS: IBUPROFEN 600MG TAB PO ONE (16:37)
[2023-09-11 17:23] LABS: BLOOD UREA NITROGEN 17 MG/DL (9-23); CALCIUM LEVEL 9.2 MG/DL (8.5-10.1); CARBON DIOXIDE LEVEL 28 MMOL/L (20-31); CHLORIDE LEVEL 96 MMOL/L (98-107); CREATININE FOR GFR 1.06 MG/DL (0.70-1.30); GLOMERULAR FILTRATION RATE > 60.0 (>60); GLUCOSE, FASTING 95 MG/DL (60-100); POTASSIUM SERUM 2.9 MMOL/L (3.5-5.1); SODIUM LEVEL 133 MMOL/L (136-145)
[2023-09-11] MEDS: ceFAZolin SOD 2 GM in IV 1 EA IV ONE (18:34)
[2023-09-11] MEDS: POTASSIUM CHLORIDE 10MEQ SR TABLET PO ONE ×2 (19:10→22:39)
[2023-09-11] MEDS: KCL 10MEQ/100ML SWI (KRUN) 10 MEQ in IV 1 EA IV ONE (19:31)
[2023-09-11] MEDS ORDERED: MOM 30ML SUSPENSION UDC PO PRN (20:20)
[2023-09-11] MEDS: NS 1,000 ML IV SCH (20:45)
[2023-09-11] MEDS: DOXYCYCLINE HYCLATE 100MG TABLET PO SCH (22:39)
[2023-09-11] MEDS ORDERED: HOME MED LIST COMPLETE! XX SCH (23:35)
[2023-09-11] MEDS: CALCIUM CARBONATE 500 MG CHEW U/D PO ONE (23:53)
[2023-09-12] VITALS (7 sets, daily range): BP systolic 115–147; BP diastolic 72–81; TEMP 97.8–99.1; O2SAT 95–97
[2023-09-12 00:09] LABS: BLOOD UREA NITROGEN 14 MG/DL (9-23); CALCIUM LEVEL 8.5 MG/DL (8.5-10.1); CARBON DIOXIDE LEVEL 30 MMOL/L (20-31); CHLORIDE LEVEL 102 MMOL/L (98-107); CREATININE FOR GFR 0.99 MG/DL (0.70-1.30); GLOMERULAR FILTRATION RATE > 60.0 (>60); GLUCOSE, FASTING 85 MG/DL (60-100); POTASSIUM SERUM 3.2 MMOL/L (3.5-5.1); SODIUM LEVEL 137 MMOL/L (136-145)
[2023-09-12] MEDS: MAALOX 30 ML SUSP *UDC PO ONE (00:46)
[2023-09-12] MEDS: ceFAZolin SOD 2 GM in IV 1 EA IV SCH (02:03)
[2023-09-12] MEDS: ENOXAPARIN 40MG/0.4ML SYRINGE (J1650 PER 10MG) SC SCH (08:27)
[2023-09-12 08:31] LABS: HEMATOCRIT 35.8 % (42.0-52.0); HEMOGLOBIN 12.8 g/dl (13.5-17.5); MEAN CORPUSCULAR HGB CONC 35.8 g/dl (32.0-36.5); MEAN CORPUSCULAR VOLUME 86.7 fl (80.0-96.0); PLATELET COUNT, AUTOMATED 184 10^3/uL (150-450); RED BLOOD COUNT 4.13 10^6/uL (4.30-6.10); WHITE BLOOD COUNT 10.5 10^3/uL (4.0-10.0)
[2023-09-12 08:54] LABS: ALBUMIN 3.8 G/DL (3.2-5.2); ALKALINE PHOSPHATASE 98 U/L (46-116); ALT/SGPT 60 U/L (7.0-40); AST/SGOT 46 U/L (<34); BILIRUBIN,TOTAL 3.3 MG/DL (0.3-1.2); BLOOD UREA NITROGEN 12 MG/DL (9-23); CALCIUM LEVEL 8.6 MG/DL (8.5-10.1); CARBON DIOXIDE LEVEL 25 MMOL/L (20-31); CHLORIDE LEVEL 102 MMOL/L (98-107); GLOMERULAR FILTRATION RATE > 60.0 (>60); GLUCOSE, FASTING 101 MG/DL (60-100); POTASSIUM SERUM 3.3 MMOL/L (3.5-5.1); SODIUM LEVEL 134 MMOL/L (136-145); TOTAL PROTEIN 6.4 G/DL (5.7-8.2)
[2023-09-12] MEDS: POTASSIUM CHLORIDE 10MEQ SR TABLET PO ONE ×2 (13:52→16:11)
[2023-09-12] MEDS: ACETAMINOPHEN TAB 650MG DOSE (2X325MG) PO PRN (16:19)
[2023-09-13 04:59] VITALS: BP 120/72; TEMP 97.2; O2SAT 96
[2023-09-13 07:01] LABS: HEMATOCRIT 38.7 % (42.0-52.0); HEMOGLOBIN 13.4 g/dl (13.5-17.5); MEAN CORPUSCULAR HEMOGLOBIN 30.1 pg (27.0-33.0); MEAN CORPUSCULAR HGB CONC 34.6 g/dl (32.0-36.5); PLATELET COUNT, AUTOMATED 199 10^3/uL (150-450); RED BLOOD COUNT 4.45 10^6/uL (4.30-6.10); WHITE BLOOD COUNT 4.8 10^3/uL (4.0-10.0)
[2023-09-13 07:18] LABS: ALBUMIN 3.3 G/DL (3.2-5.2); ALKALINE PHOSPHATASE 126 U/L (46-116); ALT/SGPT 80 U/L (7.0-40); AST/SGOT 73 U/L (<34); BILIRUBIN,TOTAL 0.8 MG/DL (0.3-1.2); BLOOD UREA NITROGEN 11 MG/DL (9-23); CALCIUM LEVEL 8.4 MG/DL (8.5-10.1); CARBON DIOXIDE LEVEL 29 MMOL/L (20-31); CHLORIDE LEVEL 104 MMOL/L (98-107); CREATININE FOR GFR 0.83 MG/DL (0.70-1.30); GLOMERULAR FILTRATION RATE > 60.0 (>60); GLUCOSE, FASTING 105 MG/DL (60-100); POTASSIUM SERUM 3.7 MMOL/L (3.5-5.1); SODIUM LEVEL 139 MMOL/L (136-145); TOTAL PROTEIN 6.4 G/DL (5.7-8.2)
[2023-09-13 08:00] VITALS: BP 119/72; TEMP 97.9; O2SAT 97
[2023-09-13] MEDS ORDERED: CIPR250T3 PO (08:21)
[2023-09-13] MEDS ORDERED: PROB250C PO (08:21)
== END 2023-09-13 09:57 | disposition home or self-care (01) | DRG 383 ==
LOC: M ED 14:59 → M ED INP 20:18 → EEVIPCON 20:18 → M MS5PR 09-12 00:15 → OBSVTOIN 09-12 13:11
PROVIDERS: ADMIT Internal Medicine; ATTEND Internal Medicine
DX: L03.115 Cellulitis of right lower limb (principal); R17 Unspecified jaundice; E87.6 Hypokalemia; L03.116 Cellulitis of left lower limb